=== PATIENT | female | born 1985 | race Caucasian/White ===

== ENCOUNTER 2018-12-07 21:32 | Emergency (ER) | payer SELFPAY ==
[2018-12-07 21:33] VITALS: BP 115/66; PULSE 106; RESP 16; TEMP 37.1; O2SAT 100; BMI 21.1
--- NOTE | 2018-12-07 23:17 | ED.VISSUMM ---
- ER Visit Summary Date of Service: 12/07/18 Chief Complaint: Rash History of Present Illness: The patient is a 33 F who presents with a rash. It is been present for 1-1/2 weeks. It itches. It is on her back arms and chest. She cannot identify any new exposures such as foods medications detergents. She thought it may be an allergic reaction so she changed detergents after her rash began without any change in symptoms she has been trying Benadryl Claritin and cortisone cream with only mild relief. No systemic symptoms such as fevers chest pain shortness of breath vomiting. Physical Examination: Afebrile heart rate 106 vitals otherwise normal Moist mucous membranes Heart regular rate and rhythm Lungs clear Abdomen soft There is a rash which appears to be urticaria on the torso and arms she is actively scratching at this at the time of my exam Test Results: Not indicated Emergency Department Course and Treatment: Patient given intramuscular Kenalog here for symptomatic relief. She was advised that if her symptoms do not improve she should follow-up with her primary care physician. She understands to return for new or worsening symptoms including but not limited to fever. Patient discharged. Treatment Plan: [] Disposition: Discharge Impression: Urticaria This note was generated with [employer] dictation software. It may contain incorrect words, spelling, and punctuation that were not noted in review of the chart prior to signing
--- NOTE | 2018-12-07 23:18 | ED.DEP ---
ED Disposition - Plan for ED Patient: Instructions: ED Urticaria Referrals: Chaz Esparza MD [STAFF PHYSICIAN] -
[2018-12-07] MEDS: Triamcinolone Acetonide 40 MG/ML Vial IM (23:36)
[2018-12-07 23:55] VITALS: BP 112/62; PULSE 92; RESP 18; O2SAT 97
== END 2018-12-07 23:56 | disposition home or self-care (01) ==
LOC: ED 23:40
PROVIDERS: Emergency Provider Emergency Medicine
DX: L50.9 Urticaria, unspecified (principal); Z72.0 Tobacco use
CPT/HCPCS: 96372; 99282